=== PATIENT | female | born 1970 | race Caucasian/White ===

== ENCOUNTER 2020-05-30 07:12 | Outpatient (REF) | payer OTHER, SELFPAY | END 2020-05-30 07:13 | disposition home or self-care (01) | LOC: HO.WFDLDS 07:12 | PROVIDERS: Visit Provider Internal Medicine | DX: Z20.828 Contact with and (suspected) exposure to other viral communicable diseases (principal) | CPT/HCPCS: 87635 ==

== ENCOUNTER 2020-08-27 07:01 | Outpatient (REF) | payer OTHER, SELFPAY | END 2020-08-27 07:02 | disposition home or self-care (01) | LOC: HO.WFDLDS 07:01 | PROVIDERS: Visit Provider Internal Medicine | DX: Z20.822 Contact with and (suspected) exposure to COVID-19 (principal) | CPT/HCPCS: 36415; C9803; U0003 ==

== ENCOUNTER 2023-10-07 08:16 | Outpatient (AMB) | payer OTHER, SELFPAY ==
[2023-10-07 08:47] VITALS: BP 128/86; PULSE 77; RESP 13; TEMP 36.4; O2SAT 94; BMI 30.8
--- NOTE | 2023-10-07 08:47 | MHC.OFFWIV ---
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 Accompanied by: Self / Same As Patient Allergies No Known Allergies Allergy (Verified 10/07/23 09:07) Medication List - Last Reconciled 10/07/23 by Portia Stein, ENVIRONMENTAL SAMPLING TECHNICIAN- pregabalin 75 mg PO BID Do you need a note to return to daycare/school/sports/work: No HPI HPI Comments History of Present Illness Details Here today feels like she has seasonal allergies and potential post nasal drip last night had increase in sore throat; painful swallowing last night admits its better than it was Used antihistamines and nasal sprays along w/ mucinex sinus Denies fever, painful swallowing. PFSH Social History Patient Tobacco Use Status: Never used Tobacco Review of Systems Const All systems reviewed & are unremarkable except as noted in HPI and below Physical Exam Vital Signs: Last Vital Signs Temp 97.5 F 10/07/23 08:47 Pulse 77 10/07/23 08:47 Resp 13 10/07/23 08:47 BP 128/86 10/07/23 08:47 Pulse Ox 94 10/07/23 08:47 Oxygen Delivery Method Room Air 10/07/23 08:47 BMI result Body Mass Index 30.8 Const Other: Awake alert NAD Sclera and conjunctiva clear bilat TM intact and clear bilat MMM, pharynx WNL RRR LS CTAB Assessment & Plan Assessment & Plan (1) Allergic pharyngitis: Code(s): J02.9 - Acute pharyngitis, unspecified Plan: Exam today consistent with allergic pharyngitis. Offered and declined swab for strep as well as COVID flu and RSV. Advised to continue taking her daily antihistamine, nasal spray and Mucinex sinus. If symptoms worsen or do not improve advised to return to office for further evaluation Coding Level of Care Code Est Pt Level 3 (00939) Diagnoses Allergic pharyngitis J02.9
== END 2023-10-07 09:11 | disposition home or self-care (01) ==
PROVIDERS: Visit Provider Nurse Practitioner Family
DX: J02.9 Acute pharyngitis, unspecified (principal)
CPT/HCPCS: 99213

== ENCOUNTER → 2024-04-11 13:35 | Outpatient (BNVA) | payer OTHER, SELFPAY | PROVIDERS: Visit Provider Physician Assistant Medical | DX: S60.571A Other superficial bite of hand of right hand, initial encounter (principal); W50.3XXA Accidental bite by another person, initial encounter | CPT/HCPCS: 86706; 99203 ==

== ENCOUNTER → 2024-04-13 10:45 | Outpatient (BNVA) | payer OTHER, SELFPAY | PROVIDERS: Visit Provider Physician Assistant Medical | DX: S60.571A Other superficial bite of hand of right hand, initial encounter (principal); W50.3XXA Accidental bite by another person, initial encounter; Z23 Encounter for immunization | CPT/HCPCS: 99213 ==

== ENCOUNTER → 2024-04-18 15:11 | Outpatient (BNVA) | payer OTHER, SELFPAY | PROVIDERS: Visit Provider Physician Assistant Medical | DX: S60.571A Other superficial bite of hand of right hand, initial encounter (principal); W50.3XXA Accidental bite by another person, initial encounter; M25.641 Stiffness of right hand, not elsewhere classified | CPT/HCPCS: 99213 ==

== ENCOUNTER → 2024-04-25 15:46 | Outpatient (BNVA) | payer OTHER, SELFPAY | PROVIDERS: Visit Provider Physician Assistant Medical | DX: S60.571A Other superficial bite of hand of right hand, initial encounter (principal); W50.3XXA Accidental bite by another person, initial encounter | CPT/HCPCS: 99213 ==

== ENCOUNTER → 2024-05-10 15:57 | Outpatient (BNVA) | payer OTHER, SELFPAY | PROVIDERS: Visit Provider Physician Assistant Medical | DX: S60.571D Other superficial bite of hand of right hand, subsequent encounter (principal); W50.3XXD Accidental bite by another person, subsequent encounter | CPT/HCPCS: 99213 ==

== ENCOUNTER → 2024-07-13 12:24 | Outpatient (BNVA) | payer OTHER, SELFPAY | PROVIDERS: Visit Provider Physician Assistant | DX: S50.871A Other superficial bite of right forearm, initial encounter (principal); W50.3XXA Accidental bite by another person, initial encounter | CPT/HCPCS: 99203 ==

== ENCOUNTER → 2024-07-15 14:29 | Outpatient (BNVA) | payer OTHER, SELFPAY | PROVIDERS: Visit Provider Physician Assistant | DX: S50.871A Other superficial bite of right forearm, initial encounter (principal); X50.3XXA Overexertion from repetitive movements, initial encounter | CPT/HCPCS: 99213 ==

== ENCOUNTER → 2024-10-14 08:08 | Outpatient (BNVA) | payer OTHER, SELFPAY | DX: Z23 Encounter for immunization (principal); S60.571D Other superficial bite of hand of right hand, subsequent encounter; W50.3XXD Accidental bite by another person, subsequent encounter; Z02.79 Encounter for issue of other medical certificate | CPT/HCPCS: 99211 ==

== ENCOUNTER → 2024-10-31 12:36 | Outpatient (BNVA) | payer OTHER, SELFPAY | PROVIDERS: Visit Provider Physician Assistant Medical | DX: S39.012A Strain of muscle, fascia and tendon of lower back, initial encounter (principal); X50.1XXA Overexertion from prolonged static or awkward postures, initial encounter | CPT/HCPCS: 99203 ==

== ENCOUNTER → 2024-11-02 09:24 | Outpatient (BNVA) | payer OTHER, SELFPAY | PROVIDERS: Visit Provider Internal Medicine | DX: S39.012A Strain of muscle, fascia and tendon of lower back, initial encounter (principal); X50.1XXA Overexertion from prolonged static or awkward postures, initial encounter; Z02.79 Encounter for issue of other medical certificate | CPT/HCPCS: 99213 ==

== ENCOUNTER → 2024-11-23 08:02 | Outpatient (BNVA) | payer OTHER, SELFPAY | DX: Z23 Encounter for immunization (principal); Z02.79 Encounter for issue of other medical certificate | CPT/HCPCS: 86706; 99211 ==